=== PATIENT | female | born 1990 ===

== ENCOUNTER 2023-02-07 13:12 | Outpatient (CLI) | payer OTHER ==
[2023-02-07] MEDS ORDERED: PROGESTERONE200 MG VAG (15:49)
== END 2023-02-07 16:15 | disposition home or self-care (01) ==
LOC: PRENATAL 13:12
PROVIDERS: ATTEND Obstetrics & Gynecology Maternal & Fetal Medicine
DX: O35.9XX0 Maternal care for (suspected) fetal abnormality and damage, unspecified, not applicable or unspecified (principal); O26.879 Cervical shortening, unspecified trimester; Z3A.19 19 weeks gestation of pregnancy

== ENCOUNTER 2023-03-03 09:27 | Outpatient (CLI) | payer OTHER ==
[~2023-03-03 09:27] MED LIST: PROGESTERONE200 MG VAG
== END 2023-03-03 10:27 | disposition home or self-care (01) ==
LOC: PRENATAL 09:27
PROVIDERS: ATTEND Obstetrics & Gynecology Maternal & Fetal Medicine
DX: O26.849 Uterine size-date discrepancy, unspecified trimester (principal); O26.879 Cervical shortening, unspecified trimester; Z3A.22 22 weeks gestation of pregnancy

== ENCOUNTER 2023-05-12 13:35 | Outpatient (CLI) | payer OTHER | END 2023-05-12 14:19 | disposition home or self-care (01) | LOC: PRENATAL 13:35 | PROVIDERS: ATTEND Obstetrics & Gynecology Maternal & Fetal Medicine | DX: O26.849 Uterine size-date discrepancy, unspecified trimester (principal); O35.9XX0 Maternal care for (suspected) fetal abnormality and damage, unspecified, not applicable or unspecified; O36.8199 Decreased fetal movements, unspecified trimester, other fetus; Z3A.12 12 weeks gestation of pregnancy ==